=== PATIENT | female | born 1965 | race Caucasian/White ===

== ENCOUNTER 2017-02-15 09:38 | Day surgery (SDC) | payer OTHER ==
[~2017-02-15] VITALS: Ht 165.1 cm; Wt 113.9 kg
[~2017-02-15 09:38] MED LIST: ALLEGRA-D 241 TABLET PO; ASACOL400 MG; CALCIUM 500 MG1 EACH PO; CELEXA10 MG PO; CLONAZEPAM1 M1 PO; COGENTIN0.5 MG PO; CONCERTA27 MG PO; CRESTOR40 MG PO; DEPO-PROVER150 MG/ML IM; DESYREL100 MG PO; FLAGYL500 MG PO; FOSAMAX70 M1 PO; GEODON80 MG; GEODON80 MG PO; IMURAN50 MG PO; INDERAL40 MG PO; KLONOPIN1 M2; KLONOPIN1 MG PO; LATUDA60 MG PO; LIDODERM 5% P1 PATCH TD; LISINOPRIL-HCT1 EACH PO; LISINOPRIL10 MG PO; LORTAB 5-325 M1 EACH PO; MEDROL DOSEPAK4 MG PO; METFORMIN HCL500 MG PO; MOTRIN800 MG PO; NEXIUM40 MG PO; OTEZLA1 EAC1 PO; OTEZLA30 MG PO; PENTASA500 MG PO; PRINIVIL10 MG PO; PROZAC40 MG PO; RITALIN LA40 MG PO; RITALIN10 MG PO; SEROQUEL50 MG PO; SKELAXIN800 MG PO; TEGRETOL-XR,CA400 MG PO; TEGRETOL200 MG PO; VALIUM5 MG PO; VITAMIN D2400 UNIT; VITAMIN D400 UNI1 PO; ZOCOR40 MG PO; ZOFRAN4 MG PO
[2017-02-15 10:12] LABS: POINT-OF-CARE METER ID UU14174212; POINT-OF-CARE USER ID AHSRSCSLC11
== END 2017-02-15 10:55 | disposition home or self-care (01) ==
LOC: PAIN 09:38 → SDC 10:00 → PAIN 10:55
PROVIDERS: Anesthesiology Pain Medicine
DX: M51.16 Intervertebral disc disorders with radiculopathy, lumbar region (principal); M47.26 Other spondylosis with radiculopathy, lumbar region; I10 Essential (primary) hypertension; E78.5 Hyperlipidemia, unspecified; K21.9 Gastro-esophageal reflux disease without esophagitis; E11.9 Type 2 diabetes mellitus without complications; C06.9 Malignant neoplasm of mouth, unspecified; C77.9 Secondary and unspecified malignant neoplasm of lymph node, unspecified; M85.80 Other specified disorders of bone density and structure, unspecified site; E66.01 Morbid (severe) obesity due to excess calories; Z68.42 Body mass index [BMI] 45.0-49.9, adult; Z88.0 Allergy status to penicillin; Z79.84 Long term (current) use of oral hypoglycemic drugs; Z79.891 Long term (current) use of opiate analgesic; Z79.899 Other long term (current) drug therapy; F17.210 Nicotine dependence, cigarettes, uncomplicated; Z83.3 Family history of diabetes mellitus; Z80.3 Family history of malignant neoplasm of breast; Z82.49 Family history of ischemic heart disease and other diseases of the circulatory system; Z81.1 Family history of alcohol abuse and dependence
CPT/HCPCS: 82948; J1030; J2250; J3010

== ENCOUNTER 2017-04-22 08:49 | Day surgery (SDC) | payer OTHER ==
[~2017-04-22] VITALS: Ht 163.8 cm; Wt 114.8 kg
[~2017-04-22 08:49] MED LIST changes: +CELEXA20 MG PO; +CONCERTA54 MG PO; +DIOVAN HCT 81 TABLET PO; +FLONASE ALLERG9.9 ML BOTH NARES; -FOSAMAX70 M1 PO; +FOSAMAX70 MG PO; +GLUCOPHAGE500 MG PO; +HYDROCODON-ACE1 EAC7 PO; +REMICADE10 MG/ML IV
[2017-04-22 09:32] LABS: POINT-OF-CARE METER ID UU13113694
== END 2017-04-22 10:40 | disposition home or self-care (01) ==
LOC: PAIN 08:49 → SDC 09:15 → PAIN 10:40
PROVIDERS: Anesthesiology Pain Medicine
DX: M47.26 Other spondylosis with radiculopathy, lumbar region (principal); M51.16 Intervertebral disc disorders with radiculopathy, lumbar region; M54.5 Low back pain; G89.29 Other chronic pain; I10 Essential (primary) hypertension; E11.9 Type 2 diabetes mellitus without complications; E78.5 Hyperlipidemia, unspecified; F41.1 Generalized anxiety disorder; E78.1 Pure hyperglyceridemia; E66.01 Morbid (severe) obesity due to excess calories; Z68.41 Body mass index [BMI] 40.0-44.9, adult; Z79.84 Long term (current) use of oral hypoglycemic drugs; Z79.891 Long term (current) use of opiate analgesic; F17.210 Nicotine dependence, cigarettes, uncomplicated; Z88.2 Allergy status to sulfonamides
CPT/HCPCS: 82948; J1030; J2250; J3010; S0020

== ENCOUNTER 2017-04-29 07:46 | Day surgery (SDC) | payer OTHER ==
[~2017-04-29] VITALS: Ht 163.8 cm; Wt 114.8 kg
[2017-04-29 08:21] LABS: POINT-OF-CARE METER ID UU13113694
== END 2017-04-29 09:32 | disposition home or self-care (01) ==
LOC: PAIN 07:46 → SDC 08:15 → PAIN 09:32
PROVIDERS: Anesthesiology Pain Medicine
DX: M47.26 Other spondylosis with radiculopathy, lumbar region (principal); M51.16 Intervertebral disc disorders with radiculopathy, lumbar region; M54.5 Low back pain; G89.29 Other chronic pain; K86.1 Other chronic pancreatitis; I10 Essential (primary) hypertension; E11.9 Type 2 diabetes mellitus without complications; F17.210 Nicotine dependence, cigarettes, uncomplicated; E66.01 Morbid (severe) obesity due to excess calories; Z68.41 Body mass index [BMI] 40.0-44.9, adult
CPT/HCPCS: 82948; J1030; J2250; J3010; S0020

== ENCOUNTER 2017-07-26 10:04 | Day surgery (SDC) | payer OTHER ==
[~2017-07-26] VITALS: Ht 163.8 cm; Wt 112.9 kg
[2017-07-26 10:33] LABS: POINT-OF-CARE METER ID UU14174212; POINT-OF-CARE USER ID AHSRSCSLC11
== END 2017-07-26 11:45 | disposition home or self-care (01) ==
LOC: PAIN 10:04 → SDC 10:30 → PAIN 10:30
PROVIDERS: Anesthesiology Pain Medicine
DX: M47.26 Other spondylosis with radiculopathy, lumbar region (principal); M51.16 Intervertebral disc disorders with radiculopathy, lumbar region; I10 Essential (primary) hypertension; K21.9 Gastro-esophageal reflux disease without esophagitis; F41.9 Anxiety disorder, unspecified; E66.01 Morbid (severe) obesity due to excess calories; Z68.41 Body mass index [BMI] 40.0-44.9, adult; M47.812 Spondylosis without myelopathy or radiculopathy, cervical region; E11.9 Type 2 diabetes mellitus without complications; K50.90 Crohn's disease, unspecified, without complications; E78.5 Hyperlipidemia, unspecified; F17.200 Nicotine dependence, unspecified, uncomplicated; Z79.84 Long term (current) use of oral hypoglycemic drugs; Z88.2 Allergy status to sulfonamides
CPT/HCPCS: 82948; J1030; J2250; J3010; S0020

== ENCOUNTER → 2018-02-17 | Outpatient (CLI) | payer OTHER ==
[~2018-02-17] VITALS: Ht 162.6 cm; Wt 115.2 kg
[~2018-02-17] MED LIST changes: +ANORO ELLIPTA1 EACH IH; +SINGULAIR10 MG PO
== END | disposition home or self-care (01) ==
LOC: AMB 11:38
PROVIDERS: Internal Medicine Gastroenterology
PROC: 0DJ08ZZ Inspection of Upper Intestinal Tract, Via Natural or Artificial Opening Endoscopic (ICD-10-PCS; principal; 2018-02-17)
DX: K31.89 Other diseases of stomach and duodenum (principal); E11.9 Type 2 diabetes mellitus without complications; I10 Essential (primary) hypertension
CPT/HCPCS: 82948; J0330